=== PATIENT | male | born 1960 | race Caucasian/White ===

== ENCOUNTER → 2016-09-01 | Day surgery (SDC) | payer MEDICARE ==
[~2016-09-01] VITALS: Ht 165.1 cm; Wt 106.6 kg
[~2016-09-01] MED LIST: /CELE20CA; /DIPH25TAB PO; /DULO30CA OR; /ESOM40CA OR; /ESOM40CA PO; ACET500C OR; ACTO30TA OR; ACTO45TA; AMBI10TA OR; AMIT25TA2 OR; ASPI1TAB24 PO; ASPI81TA83 OR; BACL10TA2 OR; BACL10TA2 PO; CELE100C OR; COLA100C2 OR; DULO1CAP2 PO; EPINEPHrine INJ 1 MG/ML 1ML VIAL/AMP XX ONE; EQUATE STOOL SOFTNER PO; FIBE500T2 PO; GLIP10TA18 OR; GLIP10TA6 PO; GLUC1000 OR; GLYCOPYRROLATE INJ 0.2 MG/ML 2 ML VIAL As Ordered ONE; HYDR25CA PO; INSULANT SC; INSULIN; INSULIN LANTUS; INSULIN LEVIMIR SC; INSULIN PEN SC; INSULIN REG SC; INSULIN SC; JANUVIA OR; JENUVIA OR; LAXATIVE PO; LIDOCAINE 1% MDV 20ML VIAL As Ordered ONE; LIDOCAINE 1% MDV INJ 50 ML VIAL As Ordered ONE; LIDOCAINE 1% MDV INJ 50 ML VIAL XX ONE; LIDOCAINE 2% INJ 100 MG/5 ML SDV (FOR ANES.) As Ordered ONE; LIPI20TA OR; LISI30TA4 PO; LOPR50TA PO; LR 1,000 ML IV SCH; METO50TA4 OR; MIDAZOLAM INJ 2 MG/2 ML VIAL (J2250) As Ordered ONE; MORPHINE 4 MG/ML 1ML SYRINGE IV PRN; MUCI120T PO; MULT1TAB9 PO; MULTLIQ7 PO; NADO40TA PO; NEOSTIGMINE 1MG/ML 5 ML SYRINGE (J2710) As Ordered ONE; NEUR300C OR; NIAS500T2 OR; NORCO, ANEXSIA 5/325MG TABLET (HYDROcodone/ACETAMINOPHEN) PO PRN; NOVO70IN SC; OMEP20CA3 PO; OMEP20TA7 OR; ONDANSETRON 4MG/2ML VIAL (J2405) As Ordered ONE; ONDANSETRON 4MG/2ML VIAL (J2405) IV PRN; OPAN10TA16 OR; OXYC30TA84 PO; OXYC40TA19 OR; PERCOCET 5MG/325MG TAB PO PRN; POTA595T8 PO; POTA75TA OR; PRIL20CA OR; PRIN20TA3 OR; PROPOFOL 200 MG/20 ML VIAL As Ordered ONE; PROTANDUM PO; RANI150C OR; ROCURONIUM BROMIDE 50 MG/5 ML VIAL As Ordered ONE; SENN15TA2 OR; SKEL800T5 OR; SUCCINYLCHOLINE 100 MG/5 ML SYRINGE (J0330) As Ordered ONE; TOPA25TA PO; TOPA25TA10 PO; TRAZ50TA2 PO; TUMERIC PO; VICO5TAB; VICODINES TAB OR; VICT18IN SC; VITA50003 PO; VITAMIN D50000 UNT OR; ZANT150T PO; ePHEDrine SULFATE 25 MG/5 ML(5MG/ML) SYRINGE As Ordered ONE; fentaNYL 100 MCG/2 ML INJECTION (J3010) As Ordered ONE; fentaNYL 100 MCG/2 ML INJECTION (J3010) IV PRN; victoza SUBQ; zipsor OR
[2016-09-01 14:13] VITALS: BP 125/69
--- NOTE | 2016-09-01 14:18 | RO ---
DATE OF PROCEDURE: 09/01/2016 PREPROCEDURE DIAGNOSIS: Left shoulder acromioclavicular (AC) joint arthritis, instability and impingement tendinitis. POSTPROCEDURE DIAGNOSES: Acromioclavicular (AC) joint instability and arthritis. Impingement tendinitis. Biceps tendinitis. PROCEDURE: 1. Left shoulder diagnostic arthroscopy and debridement of bicipital tendinitis. 2. Left shoulder arthroscopic subacromial bursectomy. 3. Left shoulder arthroscopic distal clavicle excision. 4. Left shoulder arthroscopically assisted insertion of PainBuster catheter. SURGEON: Dr. Allie Maya PHOTOGRAPHIC EDITOR: Kendy Moran ANESTHESIA: General endotracheal tube anesthesia with postoperative PainBuster catheter. COMPLICATIONS: None. PROCEDURE: After antibiotics were given intravenously preoperatively and a successful general endotracheal tube anesthetic had been established, he was placed in the semi-beach chair position. A Spider shoulder carbone was utilized. His left shoulder area was then prepped and draped in the usual sterile fashion. Then after appropriate time out, a routine diagnostic arthroscopy was performed through a posterior portal. Intra-articularly, the glenohumeral articular cartilage was intact. There was no significant glenohumeral arthritis noted, but there was quite a bit of bicipital tendinitis, minor fraying of the upper border of the subscapularis tendon, but the subscapularis was clearly intact, as was the rotator cuff by looking above, the supraspinatus and the infraspinatus and teres minor. There was some redness along the course of the bicipital tendon and the fraying area in the rotator cuff interval was debrided with the shaver to include part of the upper border of the subscapularis and biceps tendon. Photographs were taken. Then, I placed the scope in the subacromial space and cleared out the bursa by creating a lateral and an anterior portal and using the shaver and the ablator wand. There was no bursal side rotator cuff tear identified. I was able to dissect over to the AC joint and eventually able to get a good exposure of the AC joint and I established a portal directly anteriorly into the AC joint. I used the ablator wand and the shaver to open the space and controlled the bleeding points with the wand. The distal end of the clavicle was very unstable and quite arthritic and it is noteworthy once the patient was asleep on the table and I examined his shoulder there was a significant amount of palpable crepitance as I flexed and abducted his left shoulder directly over the AC joint. Clearly, it felt as if the distal clavicle was snapping against the acromion, but his MR scan did not suggest that there was an AC joint separation, but nonetheless this appeared to be the symptom generator and thus I proceeded with a formal distal clavicle excision using the #4-0 acromionizer bur, debriding about probably a centimeter of this distal clavicle and smoothed it off nice and smoothly, including removing the inferior osteophytes. Photographs were taken before and afterward. Bleeding points were coagulated. I copiously irrigated out the subacromial space. The CA ligament was identiifed, but it looked pristine to me. There was no redness along the CA joint or redness of the dorsal side of the rotator cuff. Thus, I did not feel a formal subacromial decompression was really indicated. I felt it best just to leave that alone and taking away the bursal tissue was probably adequate decompression. I then placed the PainBuster catheter under direct arthroscopic visualization from an anterolateral puncture and then closed the arthroscopy portals and loaded the PainBuster catheter with 15 mL of 1% lidocaine. I covered the wounds with dry sterile bulky dressing. He was placed into a sling. Then awakened from general endotracheal tube anesthesia, after having tolerated the procedure well and transferred to the recovery room in stable condition. There were no intraoperative complications. Kendy Moran was critical to the success of the procedure by helping with the position of the patient, helping to close the wounds, helping to manipulate the scope as necessary for me to perform the operation smoothly and efficiently.
== END | disposition home or self-care (01) ==
LOC: M SDC 08:11
PROVIDERS: ATTEND Orthopaedic Surgery
DX: M19.012 Primary osteoarthritis, left shoulder (principal); M25.312 Other instability, left shoulder; M75.42 Impingement syndrome of left shoulder; E11.65 Type 2 diabetes mellitus with hyperglycemia; K21.9 Gastro-esophageal reflux disease without esophagitis; K74.69 Other cirrhosis of liver; I85.00 Esophageal varices without bleeding; R06.02 Shortness of breath; G89.29 Other chronic pain; M54.2 Cervicalgia; G47.33 Obstructive sleep apnea (adult) (pediatric); J30.2 Other seasonal allergic rhinitis; G43.909 Migraine, unspecified, not intractable, without status migrainosus; R06.83 Snoring; D69.6 Thrombocytopenia, unspecified; Z87.442 Personal history of urinary calculi; Z72.0 Tobacco use; Z98.1 Arthrodesis status; Z79.899 Other long term (current) drug therapy; Z79.4 Long term (current) use of insulin; Z79.82 Long term (current) use of aspirin
CPT/HCPCS: 29822; 29824; A4306; J0330; J0690; J2250; J2405; J2710; J3010

== ENCOUNTER → 2018-01-06 | Outpatient (REF) | payer MEDICARE | LOC: M LAB REF 11:44 | DX: L02.212 Cutaneous abscess of back [any part, except buttock and flank] (principal) | CPT/HCPCS: 87186 ==

== ENCOUNTER → 2018-11-07 | Outpatient (CLI) | payer MEDICARE ==
[~2018-11-07] MED LIST changes: +ASPI-161 PO; -ASPI1TAB24 PO; -EPINEPHrine INJ 1 MG/ML 1ML VIAL/AMP XX ONE; -FIBE500T2 PO; +FIBE500T4 PO; -GLYCOPYRROLATE INJ 0.2 MG/ML 2 ML VIAL As Ordered ONE; -LIDOCAINE 1% MDV 20ML VIAL As Ordered ONE; -LIDOCAINE 1% MDV INJ 50 ML VIAL As Ordered ONE; -LIDOCAINE 1% MDV INJ 50 ML VIAL XX ONE; -LIDOCAINE 2% INJ 100 MG/5 ML SDV (FOR ANES.) As Ordered ONE; +LISI-672 PO; -LISI30TA4 PO; -LR 1,000 ML IV SCH; -MIDAZOLAM INJ 2 MG/2 ML VIAL (J2250) As Ordered ONE; -MORPHINE 4 MG/ML 1ML SYRINGE IV PRN; -NEOSTIGMINE 1MG/ML 5 ML SYRINGE (J2710) As Ordered ONE; -NORCO, ANEXSIA 5/325MG TABLET (HYDROcodone/ACETAMINOPHEN) PO PRN; +NOVO1INJ4 SC; -NOVO70IN SC; -ONDANSETRON 4MG/2ML VIAL (J2405) As Ordered ONE; -ONDANSETRON 4MG/2ML VIAL (J2405) IV PRN; -PERCOCET 5MG/325MG TAB PO PRN; -PROPOFOL 200 MG/20 ML VIAL As Ordered ONE; -ROCURONIUM BROMIDE 50 MG/5 ML VIAL As Ordered ONE; -SUCCINYLCHOLINE 100 MG/5 ML SYRINGE (J0330) As Ordered ONE; +TOPA1TAB PO; -TOPA25TA10 PO; -VITA50003 PO; +VITA50005 PO; -ePHEDrine SULFATE 25 MG/5 ML(5MG/ML) SYRINGE As Ordered ONE; -fentaNYL 100 MCG/2 ML INJECTION (J3010) As Ordered ONE; -fentaNYL 100 MCG/2 ML INJECTION (J3010) IV PRN
[2018-11-07 13:29] LABS: BASO % 0.6 % (0.0-1.0); EOS # 0.1 10^3/uL (0.0-0.50); EOS % 2.9 % (0.0-3.0); HEMATOCRIT 46.5 % (42.0-52.0); HEMOGLOBIN 15.4 g/dl (13.5-17.5); LYMPH # 0.9 10^3/uL (1.5-4.5); LYMPH % 19.4 % (24.0-44.0); MEAN CORPUSCULAR HEMOGLOBIN 30.5 pg (27.0-33.0); MEAN CORPUSCULAR HGB CONC 33.1 g/dl (32.0-36.5); MEAN CORPUSCULAR VOLUME 92.1 fl (80.0-96.0); MONO # 0.5 10^3/uL (0.0-0.8); MONO % 11.2 % (0.0-5.0); NEUTROPHILS # 3.2 10^3/uL (1.8-7.7); NEUTROPHILS % 65.1 % (36.0-66.0); RED BLOOD COUNT 5.05 10^6/uL (4.30-6.10); WHITE BLOOD COUNT 4.8 10^3/uL (4.0-10.0)
[2018-11-07 13:48] LABS: PLATELET COUNT, AUTOMATED 52 10^3/uL (150-450)
[2018-11-07 13:50] LABS: HEMOGLOBIN A1c 11.7 %
[2018-11-07 14:15] LABS: ALBUMIN 3.6 GM/DL (3.2-5.2); ALT/SGPT 85 U/L (12-78); BILIRUBIN,TOTAL 0.7 MG/DL (0.2-1.0); BLOOD UREA NITROGEN 11 MG/DL (7-18); CALCIUM LEVEL 8.8 MG/DL (8.8-10.2); CARBON DIOXIDE LEVEL 28 MEQ/L (21-32); CHLORIDE LEVEL 109 MEQ/L (98-107); CHOLESTEROL LEVEL 187 MG/DL (<200); CHOLESTEROL RISK RATIO 5.666 (<5); CREATININE FOR GFR 0.78 MG/DL (0.70-1.30); GLOMERULAR FILTRATION RATE > 60.0 (>49); GLUCOSE, FASTING 196 MG/DL (70-100); HDL CHOLESTEROL 33 MG/DL (>40); LDL CHOLESTEROL 128 MG/DL (<100); NON-HDL-C 154 MG/DL; POTASSIUM SERUM 4.6 MEQ/L (3.5-5.1); SODIUM LEVEL 143 MEQ/L (136-145); TOTAL PROTEIN 6.1 GM/DL (6.4-8.2); TRIGLYCERIDES LEVEL 128 MG/DL (<150)
== END ==
LOC: M WUC 08:40
PROVIDERS: ATTEND Nurse Practitioner Family
DX: Z12.5 Encounter for screening for malignant neoplasm of prostate (principal); E11.9 Type 2 diabetes mellitus without complications; K74.60 Unspecified cirrhosis of liver
CPT/HCPCS: 36415; 80053; 80061; 83036; 84443; 85027; 85049; 85055; G0103

== ENCOUNTER → 2019-03-21 | Outpatient (REF) | payer MEDICARE ==
[~2019-03-21] MED LIST changes: -/CELE20CA; -/DIPH25TAB PO; -/DULO30CA OR; -/ESOM40CA OR; -/ESOM40CA PO; +CELE1CAP4; +CYMB1CAP5 OR; +DIPH1TAB2 PO; -DULO1CAP2 PO; +DULO1CAP5 PO; +NEXI1CAP3 OR; +NEXI1CAP3 PO; -OMEP20CA3 PO; +OMEP20CA4 PO
== END ==
LOC: M LAB LCGH 13:08
PROVIDERS: ATTEND Physician Assistant
DX: D48.5 Neoplasm of uncertain behavior of skin (principal)

== ENCOUNTER → 2019-05-10 | Outpatient (REF) | LOC: M LAB LCGH 09:18 | PROVIDERS: ATTEND Physician Assistant | DX: D48.5 Neoplasm of uncertain behavior of skin (principal) ==